=== PATIENT | female | born 1990 | race Caucasian/White ===

== ENCOUNTER 2018-03-27 06:53 | Inpatient (IN) ==
[2018-03-27] MEDS ORDERED: Sod Chloride 0.9% Inj 1,000 ML IV.SIG ONE ×3 (07:14→10:50)
--- NOTE | 2018-03-27 07:31 | ED ---
HPI General Chief complaint: Nausea/Vomiting/Diarrhea Stated complaint: N/V/D/HIGH HEART RATE Time Seen by Provider: 03/27/18 07:13 Source: patient and family Mode of arrival: ambulatory Limitations: no limitations History of Present Illness HPI Narrative: Patient comes in complaining of continued diarrhea. Patient's nausea and vomiting have improved....Patient was seen on March 16 and started on Levaquin and Flagyl for colitis.... Patient also gives a history of previous catheterization and ablation due to SVT type of symptoms. Patient is unsure if her symptoms are secondary to a recurrence of her SVT MD complaint: nausea and diarrhea Onset (ago): day(s) (10) Description of Diarrhea: watery Associated Abdominal Pain: Yes Location of pain: diffuse Severity: moderate Severity scale (1-10): 5 Quality: cramping Pain Consistency: intermittent Relieving factors: none Exacerbating factors: none Related Data Home Medications Medication Instructions Recorded Confirmed No Known Home Medications 03/27/18 03/27/18 Allergies Allergy/AdvReac Type Severity Reaction Status Date / Time meclizine Allergy Severe Twitching Verified 03/29/18 15:07 metoclopramide Allergy Intermediate Rash Verified 03/29/18 15:07 Review of Systems ROS: all other systems reviewed are negative PMFSH History History Provided By: Patient Medical History Medical History History of left heart catheterization (Acute) SVT (supraventricular tachycardia) (Acute) Tachycardia (Acute) Surgical History Surgical History H/O prior ablation treatment (Acute) Family History Family History Father Cardiovascular disease Mother Cardiovascular disease Social History Social History Substance History: No History of Abuse Second Hand Smoke Exposure: No Smoking Status: Never smoker How Often Do You Have a Drink Containing Alcohol: Never Exam Narrative Exam Narrative: GENERAL: Well-nourished, well-developed patient in no apparent distress. SKIN: Warm and dry. HEAD: Atraumatic. Normocephalic. EYES: Pupils equal and round. No scleral icterus. No injection or drainage. ENT: No nasal bleeding or discharge. Mucous membranes pink and moist. NECK: Trachea midline. No JVD. CARDIOVASCULAR: Tachycardic rate regular rhythm. no rubs or gallops RESPIRATORY: No accessory muscle use. Clear to auscultation. Breath sounds equal bilaterally. GASTROINTESTINAL: Abdomen soft, diffusely tender to palpation, nondistended. No rebound or guarding MUSCULOSKELETAL: Extremities without clubbing, cyanosis, or edema. No obvious deformities. NEUROLOGICAL: Awake and alert. No obvious cranial nerve deficits. Motor grossly within normal limits. Five out of 5 muscle strength in the arms and legs. Normal speech. PSYCHIATRIC: Appropriate mood and affect; insight and judgment normal. Course Initial Documented Vital Signs Temperature 99.3 F 03/27/18 07:00 Pulse Rate 135 H 03/27/18 07:00 Respiratory Rate 18 03/27/18 07:00 Blood Pressure 115/74 03/27/18 07:00 Pulse Oximetry 99 03/27/18 07:00 Last Documented Vital Signs Temperature 97.2 F L 03/30/18 08:00 Pulse Rate 90 03/30/18 08:00 Respiratory Rate 20 03/30/18 08:00 Blood Pressure 96/58 L 03/30/18 08:00 Pulse Oximetry 99 03/30/18 08:00 Medical Decision Making MDM Narrative Medical decision making narrative: Despite 7 days of Levaquin and Flagyl, the patient continues to have the same symptoms. Previous CT showed diffuse bowel wall thickening identified within the colon this was on March 16 today she has a leukocytosis of 16,000 with 90% shift Aggregate critical care time was 30 minutes. Time to perform other separately billable procedures was not included in the critical care time. My time did not include minutes spent treating any other patients simultaneously or on activities that did not directly contribute to the patient's treatment. The services I provided to this patient were to treat and/or prevent clinically significant deterioration that could result in: [Septic shock, hypoperfusion, with multiple organ failure, neurologic permanent disability and or -] I provided critical care services requiring my management, as noted below: Chart data review, documentation time, medication orders and management, vital sign assessments/reviewing monitor data, ordering and reviewing lab tests, ordering and interpreting/reviewing x-rays and diagnostic studies, care of the patient and discussion of the patient with the admitting physicians. Medical Screen Exam Complete: Yes Emergency Medical Condition: Yes Medical Records Medical records reviewed: Yes I reviewed the patient's medical records. Lab Data Lab results reviewed: Yes I reviewed the patient's lab results. Result diagrams: 03/28/18 05:15 03/28/18 05:15 POC Results POC Urine Results Negative Lab Results 03/27/18 03/27/18 03/27/18 Range/Units 07:30 07:30 07:30 CBC w Diff Auto diff final WBC 16.2 H (4.0-11.0) th/mm3 RBC 4.82 (4.00-5.30) mil/mm3 Hgb 14.1 (11.6-15.3) gm/dL Hct 41.0 (35.0-46.0) % MCV 85.2 (80.0-100.0) fL MCH 29.2 (27.0-34.0) pg MCHC 34.3 (32.0-36.0) % RDW 13.0 (11.6-17.2) % Plt Count 258 (150-450) th/mm3 MPV 10.1 (7.0-11.0) fL Neut % (Auto) 89.6 H (16.0-70.0) % Lymph % (Auto) 3.4 L (9.0-44.0) % [place] % (Auto) 5.2 (0.0-8.0) % Eos % (Auto) 0.1 (0.0-4.0) % Baso % (Auto) 1.7 (0.0-2.0) % Neut # (Auto) 14.6 H (1.8-7.7) th/mm3 Lymph # (Auto) 0.5 L (1.0-4.8) th/mm3 [place] # (Auto) 0.8 (0.0-0.9) th/mm3 Eos # (Auto) 0.0 (0.0-0.4) th/mm3 Baso # (Auto) 0.3 H (0.0-0.2) th/mm3 WBC Differential . Differential Comment . Sodium 139 (136-145) meq/L Potassium 3.5 (3.5-5.1) meq/L Chloride 109 H (98-107) meq/L Carbon Dioxide 19.3 L (21.0-32.0) meq/L Anion Gap 11 (5-15) meq/L BUN 10 (7-18) mg/dL Creatinine 0.78 (0.50-1.00) mg/dL Estimated GFR 89 (>89) mL/min Random Glucose 91 (74-106) mg/dL Lactic Acid 1.2 (0.4-2.0) mmol/L Calcium 8.9 (8.5-10.1) mg/dL Total Bilirubin 0.9 (0.2-1.0) mg/dL AST 25 (15-37) U/L ALT 33 (10-53) U/L Alkaline Phosphatase 99 (45-117) U/L Total Creatine Kinase (26-192) U/L Troponin I (0.02-0.05) ng/mL Total Protein 8.1 (6.4-8.2) g/dL Albumin 4.0 (3.4-5.0) g/dL Lipase 111 (73-393) U/L TSH (0.358-3.740) uIU/mL Beta HCG, Qual (0-5) mIU/mL Urine Color (Yellw/Straw) Urine Clarity (Clear) Urine pH (5.0-8.5) Ur Specific [place] (1.002-1.035) Urine Protein (Neg-Trace) mg/dL Urine Glucose (UA) (Negative) mg/dL Urine Ketones (Negative) mg/dL Urine Occult Blood (Negative) Urine Nitrate (Negative) Urine Bilirubin (Negative) Urine Urobilinogen (Less than 2) mg/dL Ur Leukocyte Esterase (Negative) Urine RBC (0-3) /hpf Ur Squamous Epith Cells (0-5) /hpf Micro UA Comment Ur Microscopic Review Urine Culture Comments Stl C.difficile Tox PCR (Negative) St C. diff Tox Epid 027 (Negative) 03/27/18 03/27/18 03/27/18 Range/Units 07:30 07:30 07:55 CBC w Diff WBC (4.0-11.0) th/mm3 RBC (4.00-5.30) mil/mm3 Hgb (11.6-15.3) gm/dL Hct (35.0-46.0) % MCV (80.0-100.0) fL MCH (27.0-34.0) pg MCHC (32.0-36.0) % RDW (11.6-17.2) % Plt Count (150-450) th/mm3 MPV (7.0-11.0) fL Neut % (Auto) (16.0-70.0) % Lymph % (Auto) (9.0-44.0) % [place] % (Auto) (0.0-8.0) % Eos % (Auto) (0.0-4.0) % Baso % (Auto) (0.0-2.0) % Neut # (Auto) (1.8-7.7) th/mm3 Lymph # (Auto) (1.0-4.8) th/mm3 [place] # (Auto) (0.0-0.9) th/mm3 Eos # (Auto) (0.0-0.4) th/mm3 Baso # (Auto) (0.0-0.2) th/mm3 WBC Differential Differential Comment Sodium (136-145) meq/L Potassium (3.5-5.1) meq/L Chloride (98-107) meq/L Carbon Dioxide (21.0-32.0) meq/L Anion Gap (5-15) meq/L BUN (7-18) mg/dL Creatinine (0.50-1.00) mg/dL Estimated GFR (>89) mL/min Random Glucose (74-106) mg/dL Lactic Acid (0.4-2.0) mmol/L Calcium (8.5-10.1) mg/dL Total Bilirubin (0.2-1.0) mg/dL AST (15-37) U/L ALT (10-53) U/L Alkaline Phosphatase (45-117) U/L Total Creatine Kinase 67 (26-192) U/L Troponin I Less than 0.02 L (0.02-0.05) ng/mL Total Protein (6.4-8.2) g/dL Albumin (3.4-5.0) g/dL Lipase (73-393) U/L TSH 2.600 (0.358-3.740) uIU/mL Beta HCG, Qual Less than 1.00 (0-5) mIU/mL Urine Color Yellow (Yellw/Straw) Urine Clarity Clear (Clear) Urine pH 6.5 (5.0-8.5) Ur Specific [place] 1.010 (1.002-1.035) Urine Protein Negative (Neg-Trace) mg/dL Urine Glucose (UA) Negative (Negative) mg/dL Urine Ketones 15 H (Negative) mg/dL Urine Occult Blood Negative (Negative) Urine Nitrate Negative (Negative) Urine Bilirubin Negative (Negative) Urine Urobilinogen 0.2 (Less than 2) mg/dL Ur Leukocyte Esterase Negative (Negative) Urine RBC 0-3 (0-3) /hpf Ur Squamous Epith Cells 0-5 (0-5) /hpf Micro UA Comment Culture not ind Ur Microscopic Review Microscopic reviewed Urine Culture Comments Culture not ind Stl C.difficile Tox PCR (Negative) St C. diff Tox Epid 027 (Negative) 03/27/18 03/27/18 03/28/18 Range/Units 12:45 18:37 05:15 CBC w Diff Auto diff final WBC 5.7 D (4.0-11.0) th/mm3 RBC 4.02 (4.00-5.30) mil/mm3 Hgb 11.8 D (11.6-15.3) gm/dL Hct 35.8 (35.0-46.0) % MCV 89.0 D (80.0-100.0) fL MCH 29.4 (27.0-34.0) pg MCHC 33.0 (32.0-36.0) % RDW 13.2 (11.6-17.2) % Plt Count 208 (150-450) th/mm3 MPV 9.7 (7.0-11.0) fL Neut % (Auto) 71.1 H (16.0-70.0) % Lymph % (Auto) 16.1 (9.0-44.0) % [place] % (Auto) 9.8 H (0.0-8.0) % Eos % (Auto) 2.3 (0.0-4.0) % Baso % (Auto) 0.7 (0.0-2.0) % Neut # (Auto) 4.1 (1.8-7.7) th/mm3 Lymph # (Auto) 0.9 L (1.0-4.8) th/mm3 [place] # (Auto) 0.6 (0.0-0.9) th/mm3 Eos # (Auto) 0.1 (0.0-0.4) th/mm3 Baso # (Auto) 0.0 (0.0-0.2) th/mm3 WBC Differential . Differential Comment . Sodium (136-145) meq/L Potassium (3.5-5.1) meq/L Chloride (98-107) meq/L Carbon Dioxide (21.0-32.0) meq/L Anion Gap (5-15) meq/L BUN (7-18) mg/dL Creatinine (0.50-1.00) mg/dL Estimated GFR (>89) mL/min Random Glucose (74-106) mg/dL Lactic Acid (0.4-2.0) mmol/L Calcium (8.5-10.1) mg/dL Total Bilirubin (0.2-1.0) mg/dL AST (15-37) U/L ALT (10-53) U/L Alkaline Phosphatase (45-117) U/L Total Creatine Kinase 62 (26-192) U/L Troponin I Less than 0.02 L (0.02-0.05) ng/mL Total Protein (6.4-8.2) g/dL Albumin (3.4-5.0) g/dL Lipase (73-393) U/L TSH (0.358-3.740) uIU/mL Beta HCG, Qual (0-5) mIU/mL Urine Color (Yellw/Straw) Urine Clarity (Clear) Urine pH (5.0-8.5) Ur Specific [place] (1.002-1.035) Urine Protein (Neg-Trace) mg/dL Urine Glucose (UA) (Negative) mg/dL Urine Ketones (Negative) mg/dL Urine Occult Blood (Negative) Urine Nitrate (Negative) Urine Bilirubin (Negative) Urine Urobilinogen (Less than 2) mg/dL Ur Leukocyte Esterase (Negative) Urine RBC (0-3) /hpf Ur Squamous Epith Cells (0-5) /hpf Micro UA Comment Ur Microscopic Review Urine Culture Comments Stl C.difficile Tox PCR Positive H (Negative) St C. diff Tox Epid 027 Negative (Negative) 03/28/18 Range/Units 05:15 CBC w Diff WBC (4.0-11.0) th/mm3 RBC (4.00-5.30) mil/mm3 Hgb (11.6-15.3) gm/dL Hct (35.0-46.0) % MCV (80.0-100.0) fL MCH (27.0-34.0) pg MCHC (32.0-36.0) % RDW (11.6-17.2) % Plt Count (150-450) th/mm3 MPV (7.0-11.0) fL Neut % (Auto) (16.0-70.0) % Lymph % (Auto) (9.0-44.0) % [place] % (Auto) (0.0-8.0) % Eos % (Auto) (0.0-4.0) % Baso % (Auto) (0.0-2.0) % Neut # (Auto) (1.8-7.7) th/mm3 Lymph # (Auto) (1.0-4.8) th/mm3 [place] # (Auto) (0.0-0.9) th/mm3 Eos # (Auto) (0.0-0.4) th/mm3 Baso # (Auto) (0.0-0.2) th/mm3 WBC Differential Differential Comment Sodium 143 (136-145) meq/L Potassium 3.7 (3.5-5.1) meq/L Chloride 113 H (98-107) meq/L Carbon Dioxide 19.4 L (21.0-32.0) meq/L Anion Gap 11 (5-15) meq/L BUN 4 L (7-18) mg/dL Creatinine 0.62 (0.50-1.00) mg/dL Estimated GFR Greater than 89 (>89) mL/min Random Glucose 65 L (74-106) mg/dL Lactic Acid (0.4-2.0) mmol/L Calcium 8.2 L (8.5-10.1) mg/dL Total Bilirubin (0.2-1.0) mg/dL AST (15-37) U/L ALT (10-53) U/L Alkaline Phosphatase (45-117) U/L Total Creatine Kinase (26-192) U/L Troponin I (0.02-0.05) ng/mL Total Protein (6.4-8.2) g/dL Albumin (3.4-5.0) g/dL Lipase (73-393) U/L TSH (0.358-3.740) uIU/mL Beta HCG, Qual (0-5) mIU/mL Urine Color (Yellw/Straw) Urine Clarity (Clear) Urine pH (5.0-8.5) Ur Specific [place] (1.002-1.035) Urine Protein (Neg-Trace) mg/dL Urine Glucose (UA) (Negative) mg/dL Urine Ketones (Negative) mg/dL Urine Occult Blood (Negative) Urine Nitrate (Negative) Urine Bilirubin (Negative) Urine Urobilinogen (Less than 2) mg/dL Ur Leukocyte Esterase (Negative) Urine RBC (0-3) /hpf Ur Squamous Epith Cells (0-5) /hpf Micro UA Comment Ur Microscopic Review Urine Culture Comments Stl C.difficile Tox PCR (Negative) St C. diff Tox Epid 027 (Negative) Imaging Data Radiologist's impression: Abdomen/Pelvis CT 03/27/18 00:00 CONCLUSION: 1. Scattered areas of wall thickening versus nondistention in the large bowel. This is less prominent from previous study. No perforation or pericolonic fluid collections. 2. The remainder of the study is otherwise unremarkable. ECG Data EKG Prior to Arrival: No Attestation: I personally reviewed and interpreted this ECG as follows: Prior ECG tracings: not available for review Interpretation: Sinus tachycardia, 137 bpm, patient has some ST depressions from V3 through V6 noted without any concomitant ST elevation pattern. Therefore no STEMI pattern noted Discharge Plan Discharge Disposition Patient Disposition: 01 Discharge Home Discharge Condition Condition: Stable Discharge Order Discharge Orders: Discharge Order (Routine); Ordered 03/30/18 Ordered By: Martine Houston Discharge Details Anticipated Discharge Date: 03/30/18 Diagnosis: Dehydration, Colitis Physicians Team ED Provider: Americo Don Primary Care Provider: Primary Care Rosa Parekh Attending Provider: Edvin Pineda Other Providers: Tiki Landin ; Elio Das Status ED Status: Left Department Discharge Information Discharge Date/Time: 03/27/18 13:00
[2018-03-27 07:54] LABS: Chloride 109 meq/L (98-107); Potassium 3.5 meq/L (3.5-5.1); Sodium 139 meq/L (136-145)
[2018-03-27 07:56] LABS: Baso # (Auto) 0.3 th/mm3 (0.0-0.2); Baso % (Auto) 1.7 % (0.0-2.0); Eos % (Auto) 0.1 % (0.0-4.0); Hemoglobin 14.1 gm/dL (11.6-15.3); Lymph # (Auto) 0.5 th/mm3 (1.0-4.8); Lymph % (Auto) 3.4 % (9.0-44.0); Mean Corpuscular HGB Conc 34.3 % (32.0-36.0); Mean Corpuscular Hemoglobin 29.2 pg (27.0-34.0); Mean Corpuscular Volume 85.2 fL (80.0-100.0); Mean Platelet Volume 10.1 fL (7.0-11.0); Mono # (Auto) 0.8 th/mm3 (0.0-0.9); Mono % (Auto) 5.2 % (0.0-8.0); Neut # (Auto) 14.6 th/mm3 (1.8-7.7); Neut % (Auto) 89.6 % (16.0-70.0); Platelet Count 258 th/mm3 (150-450); Red Blood Count 4.82 mil/mm3 (4.00-5.30); White Blood Count 16.2 th/mm3 (4.0-11.0)
[2018-03-27 07:58] LABS: Anion Gap 11 meq/L (5-15); Blood Urea Nitrogen 10 mg/dL (7-18); Calcium 8.9 mg/dL (8.5-10.1); Carbon Dioxide 19.3 meq/L (21.0-32.0); Glucose,Random 91 mg/dL (74-106); Lipase 111 U/L (73-393)
[2018-03-27 07:58] LABS: Bilirubin,Urine Negative (Negative); Clarity,Urine Clear (Clear); Color,Urine Yellow (Yellw/Straw); Glucose,Urine (UA) Negative (Negative); Leukocyte Esterase,Urine Negative (Negative); Nitrite,Urine Negative (Negative); PH,Urine 6.5 (5.0-8.5); Urobilinogen,Urine 0.2 mg/dL (Less than 2)
[2018-03-27 08:01] LABS: Alanine Aminotransferase 33 U/L (10-53); Aspartate Aminotransferase 25 U/L (15-37); Glomerular Filtration Rate 89 mL/min (>89)
[2018-03-27 08:03] LABS: Total Protein 8.1 g/dL (6.4-8.2)
[2018-03-27 08:04] LABS: Alkaline Phosphatase 99 U/L (45-117)
[2018-03-27 08:04] LABS: RBC,Urine 0-3 /hpf (0-3); Squamous Epithelial Cell,Urine 0-5 /hpf (0-5)
[2018-03-27] MEDS ORDERED: Bisacodyl 10 MG Supp RECTAL PRN (12:15)
[2018-03-27] MEDS ORDERED: Acetaminophen 325 MG Tablet PO PRN (12:15)
[2018-03-27] MEDS: Sod Chloride 0.9% Inj 1,000 ML IV.CONT SCH ×2 (12:50→22:51)
[2018-03-27] MEDS ORDERED: Magnesium Citrate Liq 300 ML Bottle PO ONE (12:55)
[2018-03-27 13:03] LABS: Creatine Kinase 67 U/L (26-192)
[2018-03-27] MEDS ORDERED: Diatrizoate Meglum/Diatrizoate Sod Liq 9 ML UDC PO ONE (13:42)
[2018-03-27 19:11] LABS: Creatine Kinase 62 U/L (26-192)
--- NOTE | 2018-03-27 20:03 | ECG ---
Date Performed: 03/27/2018 Time Performed: 11:31:58 PTAGE: 27 years EKG: SINUS TACHYCARDIA ST DEVIATION AND MODERATE T-WAVE ABNORMALITY ABNORMAL ECG NO PREVIOUS TRACING DOCTOR: Christiane Kaur Interpretating Date/Time 03/27/2018 20:01:21
[2018-03-27] MEDS: Lactobacillus Acidophilus/L. Spores Tablet PO SCH (20:15)
[2018-03-28 06:50] LABS: Baso % (Auto) 0.7 % (0.0-2.0); Eos # (Auto) 0.1 th/mm3 (0.0-0.4); Eos % (Auto) 2.3 % (0.0-4.0); Hematocrit 35.8 % (35.0-46.0); Hemoglobin 11.8 gm/dL (11.6-15.3); Lymph # (Auto) 0.9 th/mm3 (1.0-4.8); Lymph % (Auto) 16.1 % (9.0-44.0); Mean Corpuscular Hemoglobin 29.4 pg (27.0-34.0); Mean Platelet Volume 9.7 fL (7.0-11.0); Mono # (Auto) 0.6 th/mm3 (0.0-0.9); Mono % (Auto) 9.8 % (0.0-8.0); Neut # (Auto) 4.1 th/mm3 (1.8-7.7); Neut % (Auto) 71.1 % (16.0-70.0); Platelet Count 208 th/mm3 (150-450); Red Blood Count 4.02 mil/mm3 (4.00-5.30); Red Cell Distribution Width 13.2 % (11.6-17.2); White Blood Count 5.7 th/mm3 (4.0-11.0)
[2018-03-28 07:20] LABS: Chloride 113 meq/L (98-107); Potassium 3.7 meq/L (3.5-5.1); Sodium 143 meq/L (136-145)
[2018-03-28 07:40] LABS: Anion Gap 11 meq/L (5-15); Blood Urea Nitrogen 4 mg/dL (7-18); Calcium 8.2 mg/dL (8.5-10.1); Carbon Dioxide 19.4 meq/L (21.0-32.0); Glomerular Filtration Rate Greater Than 89 mL/min (>89); Glucose,Random 65 mg/dL (74-106)
[2018-03-28] MEDS: Lactobacillus Acidophilus/L. Spores Tablet PO SCH ×3 (08:00→17:33)
[2018-03-28] MEDS: Sod Chloride 0.9% Inj 1,000 ML IV.CONT SCH ×2 (10:55→20:57)
[2018-03-28] MEDS ORDERED: levoFLOXacin 750 MG Tablet PO SCH (11:00)
[2018-03-28] MEDS ORDERED: Magnesium Citrate Liq 300 ML Bottle PO ONE (16:09)
--- NOTE | 2018-03-28 20:48 | ECG ---
Date Performed: 03/27/2018 Time Performed: 18:28:44 PTAGE: 27 years EKG: Sinus rhythm NONSPECIFIC T-WAVE ABNORMALITY Compared to previous tracing, tachycardia has resolved and the ST-T w ave changes are less prominent BORDERLINE ECG PREVIOUS TRACING : 03/27/2018 11.31 DOCTOR: Adolfo Campbell Interpretating Date/Time 03/28/2018 20:47:34
[2018-03-28] MEDS: metroNIDAZOLE 500 MG Tablet PO SCH (23:45)
[2018-03-29] MEDS: Sod Chloride 0.9% Inj 1,000 ML IV.CONT SCH ×3 (03:52→18:29)
[2018-03-29] MEDS: metroNIDAZOLE 500 MG Tablet PO SCH ×2 (05:26→12:46)
[2018-03-29] MEDS: Lactobacillus Acidophilus/L. Spores Tablet PO SCH ×3 (08:37→19:03)
[2018-03-29] MEDS ORDERED: levoFLOXacin 750 MG Tablet PO SCH (11:00)
[2018-03-29] MEDS ORDERED: Chlorhexidine Gluconate 2% 1 Pack (2 Cloths) TOPICAL ONE (15:40)
[2018-03-29] MEDS ORDERED: Metoprolol Tartrate 25 MG Tablet PO ONE (15:40)
[2018-03-29] MEDS ORDERED: Sodium Chlor 0.9% Inj 500 ML IV.SIG SCH (16:00)
[2018-03-29] MEDS ORDERED: Morphine Sulfate Inj 2 MG/ML Vial ONE (16:43)
[2018-03-29] MEDS ORDERED: Sodium Chlor 0.9% Inj 500 ML IV.SIG ONE (21:00)
[2018-03-30] MEDS: Sod Chloride 0.9% Inj 1,000 ML IV.CONT SCH (00:41)
--- NOTE | 2018-03-30 14:44 | ECG ---
Date Performed: 03/29/2018 Time Performed: 19:43:23 PTAGE: 27 years EKG: SINUS TACHYCARDIA ST DEVIATION AND MODERATE T-WAVE ABNORMALITY, CONSIDER ANTERIOR ISCHEMIA ABNORMAL ECG Since the PREVIOUS TRACING , no significant change noted PREVIOUS TRACIN03/27/2018 18.28 DOCTOR: Jeff Bazan Interpretating Date/Time 03/30/2018 14:37:42
== END 2018-03-30 10:34 | disposition home or self-care (01) ==
LOC: PHED 06:53 → PHEDA 06:53 → PH3 13:00
PROVIDERS: ADMIT Internal Medicine; ATTEND Internal Medicine
PROC: PANENDO (2018-03-29 15:37)
PROC: COLONOS (2018-03-29 15:37)